=== PATIENT | male | born 1970 | race Two or more races ===

== ENCOUNTER → 2020-06-20 | Outpatient (CLI) | payer OTHER ==
--- NOTE | 2020-06-20 19:42 | RAD ---
Three-view right wrist HISTORY: Swelling after trauma AP lateral oblique views Visualized osseous structures appear intact. IMPRESSION: No acute findings. Electronically signed by: Kyle Silver III, MD (06/20/2020 7:39 PM) [facility]
== END ==
LOC: RAD 18:12
PROVIDERS: ATTEND Registered Nurse
DX: M25.531 Pain in right wrist (principal)
CPT/HCPCS: 73110